=== PATIENT | female | born 1950 | race Two or more races ===

== ENCOUNTER → 2022-05-20 13:21 | Outpatient (CLI) | payer OTHER | END | disposition home or self-care (01) | LOC: LAB 13:21 | PROVIDERS: ATTEND Colon & Rectal Surgery | DX: R15.9 Full incontinence of feces (principal); Z03.818 Encounter for observation for suspected exposure to other biological agents ruled out ==

== ENCOUNTER → 2022-07-02 06:00 | Outpatient (CLI) | payer OTHER ==
[~2022-07-02] VITALS: Ht 160 cm; Wt 89.8 kg
[~2022-07-02 06:00] MED LIST: ADULT LOW DOSE81 M1 PO; ARICEPT5 MG PO; CLONAZEPAM1 MG PO; COZAAR100 MG PO; GABAPENTIN400 MG PO; NIFEDIPINE20 MG PO; ONGLYZA2.5 MG PO; PRAVASTATIN SOD10 MG PO; SYNTHROID50 MCG PO
== END | disposition home or self-care (01) ==
LOC: LAB 06:00 → ADM 10:00 → CIR.AMB 07-10 10:00 → EDSTATUS 07-10 10:00
PROVIDERS: ATTEND Colon & Rectal Surgery
DX: I11.9 Hypertensive heart disease without heart failure (principal); Z95.0 Presence of cardiac pacemaker; R15.9 Full incontinence of feces; K29.51 Unspecified chronic gastritis with bleeding; D72.819 Decreased white blood cell count, unspecified; I13.10 Hypertensive heart and chronic kidney disease without heart failure, with stage 1 through stage 4 chronic kidney disease, or unspecified chronic kidney disease; E03.9 Hypothyroidism, unspecified; E78.2 Mixed hyperlipidemia; N39.0 Urinary tract infection, site not specified; R31.9 Hematuria, unspecified; Z03.818 Encounter for observation for suspected exposure to other biological agents ruled out

== ENCOUNTER 2023-02-26 06:09 | Day surgery (SDC) | payer OTHER | END 2023-02-26 14:30 | disposition home or self-care (01) | LOC: CIR.AMB 06:09 | PROVIDERS: ATTEND Colon & Rectal Surgery | DX: R15.9 Full incontinence of feces (principal); I10 Essential (primary) hypertension; E11.9 Type 2 diabetes mellitus without complications; Z88.0 Allergy status to penicillin; E78.5 Hyperlipidemia, unspecified; Z91.041 Radiographic dye allergy status | CPT/HCPCS: 64581; 95972; C1778 ==

== ENCOUNTER 2023-03-19 06:23 | Day surgery (SDC) | payer OTHER ==
[2023-03-17 14:27] LABS: HEMATOCRIT 40.5 % (36.0-45.00); HEMOGLOBIN 13.6 g/dL (12.0-15.00); MEAN CELL VOLUME 96.1 fL (80.00-100.00); MEAN CORPUSCULAR HEMOGLOBIN 32.3 pg (27.00-32.0); MEAN CORPUSCULAR HGB CONC 33.6 g/dl (32.0-36.0); RED BLOOD COUNT 4.21 M/uL (4.00-6.00); RED CELL DISTRIBUTION WIDTH 12.9 % (11.5-14.5)
[2023-03-17 14:39] LABS: PLATELET COUNT 119 K/uL (150-450)
[2023-03-17 14:51] LABS: BILIRUBIN TOTAL 1.15 mg/dL (0.3-1.2); CALCIUM 9.9 mg/dL (8.5-10.1); CREATININE SERUM 0.92 mg/dL (0.55-1.02); GFR 59.67; GLOBULINA 3.3 G/DL (2.4-3.5); POTASSIUM 4.04 mEq/L (3.5-5.1); TOTAL PROTEIN 7.3 gm/dL (6.4-8.2)
[2023-03-17 14:52] LABS: PH,URINE 5.5 (5.0-8.0); URINE APPEARANCE Cloudy; URINE BACTERIA 1152.8 uL (0.0-1933); URINE BILIRRUBIN Negative (NEGATIVE); URINE BLOOD Trace; URINE COLOR Yellow; URINE EPITHELIAL CELLS 177.3 uL (0.0-38.8); URINE GLUCOSE Negative (NEGATIVE); URINE LEUKOCYTE Small; URINE NITRATE Negative; URINE PROTEIN Negative (NEGATIVE); URINE RBC 34.2 uL (0.0-20.8); URINE WBC 71.1 uL (0.0-23.2)
[2023-03-17 15:05] LABS: INR 1.11; PARTIAL THROMBOPLASTIN TIME 25.7 SECONDS (22.0-34.0); PROTHROMBIN TIME 11.6 SECONDS (9.0-11.5)
== END 2023-03-19 14:40 | disposition home or self-care (01) ==
LOC: CIR.AMB 06:23
PROVIDERS: ATTEND Colon & Rectal Surgery
DX: R15.9 Full incontinence of feces (principal); E11.9 Type 2 diabetes mellitus without complications; E03.9 Hypothyroidism, unspecified; Z20.822 Contact with and (suspected) exposure to COVID-19; Z91.041 Radiographic dye allergy status; Z88.0 Allergy status to penicillin
CPT/HCPCS: 64590; 95972; C1767

== ENCOUNTER 2024-09-22 05:35 | Day surgery (SDC) | payer OTHER ==
[2024-09-16 15:14] LABS: URINE APPEARANCE Clear; URINE BILIRRUBIN Negative (NEGATIVE); URINE BLOOD Negative; URINE COLOR Yellow; URINE KETONE Trace (NEGATIVE); URINE LEUKOCYTE Negative; URINE NITRATE Negative; URINE PROTEIN Trace (NEGATIVE)
[2024-09-16 15:15] LABS: URINE BACTERIA 944.8 uL (0.0-1933); URINE EPITHELIAL CELLS 32.8 uL (0.0-38.8); URINE RBC 15.6 uL (0.0-20.8); URINE WBC 9.9 uL (0.0-23.2)
[2024-09-16 15:17] LABS: URINE GLUCOSE >=1000 MG/DL (NEGATIVE)
[2024-09-16 15:22] VITALS: BP 130/83
[2024-09-16 15:32] LABS: INR 1.11; PARTIAL THROMBOPLASTIN TIME 26.5 SECONDS (22.0-34.0)
[2024-09-16 15:33] LABS: BASO % 1.4 % (0.1-1.2); EOS # 0.09 (0.04-0.54); EOS % 2.5 % (0.7-7.0); HEMATOCRIT 44.1 % (34.1-44.9); HEMOGLOBIN 14.7 g/dL (11.2-15.7); LYMPH # 1.98 (1.18-3.74); LYMPH % 54.5 % (19.3-53.1); MEAN CORPUSCULAR HEMOGLOBIN 32.7 pg (25.6-32.2); MONO # 0.46 (0.24-0.82); NEUT # 1.04 (1.56-6.13); NEUT % 28.6 % (34.0-71.1); PLATELET COUNT 133 K/uL (163-369); RED BLOOD COUNT 4.49 M/uL (3.93-5.22); RED CELL DISTRIBUTION WIDTH 12.7 % (11.6-14.4)
[2024-09-16 15:45] LABS: ALBUMIN 4.2 gm/dL (3.4-5.0); BILIRUBIN TOTAL 1.14 mg/dL (0.3-1.2); CALCIUM 9.7 mg/dL (8.5-10.1); CREATININE SERUM 1.04 mg/dL (0.55-1.02); GFR 51.66; GLOBULINA 3.1 G/DL (2.4-3.5); POTASSIUM 3.83 mEq/L (3.5-5.1); TOTAL PROTEIN 7.3 gm/dL (6.4-8.2)
[2024-09-16 15:47] LABS: MONO % 12.7 % (4.7-12.5)
[~2024-09-22] VITALS: Ht 160 cm; Wt 89.4 kg
[2024-09-22] MEDS ORDERED: CEFAZOLIN SODIUM 1,000 MG VIAL ONE (06:59)
[2024-09-22] MEDS ORDERED: BUPIVACAINE HCL/MPF 0.5% 30ML VIAL ONE ×2 (07:07→07:40)
[2024-09-22] MEDS ORDERED: LIDOCAINE HCL 1%/EPINEPHRINE 20ML VIAL IJ ONE (07:07)
== END 2024-09-22 12:20 | disposition home or self-care (01) ==
LOC: CIR.AMB 05:35
PROVIDERS: ATTEND Colon & Rectal Surgery
DX: T85.123A Displacement of implanted electronic neurostimulator, generator, initial encounter (principal); Z88.0 Allergy status to penicillin; Z91.041 Radiographic dye allergy status

== ENCOUNTER 2024-09-28 18:10 | Emergency (ER) | payer OTHER ==
[~2024-09-28] VITALS: Ht 160 cm; Wt 88.9 kg
[2024-09-28] MEDS ORDERED: TRAMADOL HCL 50 MG TABLET PO STA (20:54)
[2024-09-28 21:09] LABS: BASO % 1.5 % (0.1-1.2); EOS % 2.9 % (0.7-7.0); HEMATOCRIT 42.1 % (34.1-44.9); HEMOGLOBIN 14.1 g/dL (11.2-15.7); LYMPH # 2.22 (1.18-3.74); LYMPH % 65.5 % (19.3-53.1); MEAN CORPUSCULAR HEMOGLOBIN 32.2 pg (25.6-32.2); MONO # 0.35 (0.24-0.82); MONO % 10.3 % (4.7-12.5); NEUT # 0.66 (1.56-6.13); NEUT % 19.5 % (34.0-71.1); PLATELET COUNT 134 K/uL (163-369); RED BLOOD COUNT 4.38 M/uL (3.93-5.22); RED CELL DISTRIBUTION WIDTH 12.5 % (11.6-14.4)
[2024-09-29] MEDS ORDERED: ACETAMINOPHEN 500 MG GEL..CAP PO ONE (07:33)
== END 2024-09-29 21:27 | disposition home or self-care (01) ==
LOC: ER 18:10
DX: G89.18 Other acute postprocedural pain (principal); Z91.041 Radiographic dye allergy status; I10 Essential (primary) hypertension; Z88.0 Allergy status to penicillin; Z88.2 Allergy status to sulfonamides; E11.9 Type 2 diabetes mellitus without complications; Z79.84 Long term (current) use of oral hypoglycemic drugs